=== PATIENT | female | born 2005 | race African-American/Black ===

== ENCOUNTER 2025-01-20 23:49 | Emergency (ER) | payer SELFPAY ==
[~2025-01-20] VITALS: Ht 167.6 cm; Wt 54.0 kg
[2025-01-20 23:51] VITALS: TEMP 37.1; O2SAT 98
[2025-01-21 01:14] LABS: BASOPHILS % 0.5 % (0.0-2.0); EOSINOPHILS % 0.5 % (0.0-5.0); HEMATOCRIT. 41.5 % (36.0-48.0); HEMOGLOBIN. 13.4 g/dL (12.0-16.0); LYMPHOCYTES % 15.5 % (20.0-50.0); MEAN CORPUSCULAR HEMOGLOBIN 30.1 pg (28.0-32.0); MEAN CORPUSCULAR HGB CONC 32.4 g/dL (31.0-37.0); MEAN CORPUSCULAR VOLUME 92.9 fL (81.0-99.0); MEAN PLATELET VOLUME 8.6 fl (7.4-10.4); MONOCYTES % 7.3 % (2.0-8.0); NEUTROPHILS % 76.2 % (40.0-76.0); PLATELET 378 x1000/uL (130-400); RED BLOOD CELL COUNT 4.46 mill/uL (4.2-5.4); RED CELL DISTRIBUTION WIDTH 13.9 % (11.6-14.6); WHITE BLOOD COUNT 12.4 x1000/uL (4.5-11.0)
[2025-01-21 01:19] LABS: CARBON DIOXIDE 25 mEq/L (21-32); CHLORIDE 105 mEq/L (98-107); SODIUM 138 mEq/L (136-145)
[2025-01-21 01:20] LABS: CALCIUM 9.7 mg/dL (8.7-10.4)
[2025-01-21 01:24] LABS: GLUCOSE 105 mg/dL (70-105)
[2025-01-21 01:25] LABS: UREA NITROGEN BLOOD 8 mg/dL (9-23)
[2025-01-21 01:26] LABS: ALANINE AMINOTRANSFERASE 10 IU/L (10-49); ALBUMIN 4.6 g/dL (3.2-4.8); ASPARTATE AMINOTRANSFERASE 17 IU/L (<34)
[2025-01-21 01:27] LABS: BILIRUBIN DIRECT 0.1 mg/dL (<=3.0); BILIRUBIN TOTAL 0.6 mg/dL (0.1-1.0); PROTEIN TOTAL 7.9 g/dL (6.0-8.3)
[2025-01-21 01:28] LABS: HCG SCREEN NEGATIVE
[2025-01-21 02:00] LABS: CLARITY URINE CLOUDY (CLEAR); COLOR URINE YELLOW (YELLOW); GLUCOSE URINE NEGATIVE (NEGATIVE); KETONES URINE NEGATIVE (NEGATIVE); LEUKOCYTE ESTERASE URINE 2+ (NEGATIVE); NITRITE URINE POSITIVE (NEGATIVE); OCCULT BLOOD URINE TRACE (NEGATIVE); PROTEIN URINE NEGATIVE (NEGATIVE); SPECIFIC GRAVITY URINE 1.014 (1.005-1.030); UROBILINOGEN URINE 0.2 E.U./dL (0.2-1.0)
[2025-01-21 02:26] LABS: INR 1.1; PROTHROMBIN TIME 11.6 sec (9.6-11.0)
[2025-01-21 04:07] LABS: SQUAMOUS EPITHELIAL CELL URINE FEW /lpf (RARE/1+)
[2025-01-21 04:08] LABS: RBC URINE 0-2 /hpf (0-2)
[2025-01-21 04:09] LABS: BACTERIA URINE 2+
[2025-01-21] MEDS ORDERED: NITR100C MT (04:17)
[2025-01-21 04:26] VITALS: BP 101/67; PULSE 94; RESP 14; O2SAT 97
== END 2025-01-21 04:33 | disposition home or self-care (01) ==
LOC: ER 23:49
DX: R55 Syncope and collapse (principal); N39.0 Urinary tract infection, site not specified; Z79.899 Other long term (current) drug therapy
CPT/HCPCS: 36415; 80048; 80076; 81003; 84703; 85025; 99284